=== PATIENT | female | born 1960 ===

== ENCOUNTER → 2017-07-11 | Outpatient (CLI) | payer BC | END | disposition home or self-care (01) | LOC: C.PAPS 15:28 | PROVIDERS: ATTEND Obstetrics & Gynecology | DX: Z01.419 Encounter for gynecological examination (general) (routine) without abnormal findings (principal) ==

== ENCOUNTER → 2017-07-11 | Outpatient (CLI) | payer BC ==
--- NOTE | 2017-07-27 14:36 | MAMMOGRAPHY REPORT ---
BILATERAL DIGITAL SCREENING MAMMOGRAM TOMOSYNTHESIS WITH CAD: 07/11/2017 CLINICAL HISTORY: Routine screening. Patient has no complaints. TECHNIQUE: Breast tomosynthesis in addition to standard 2D mammography was performed. Current study was also evaluated with a Computer Aided Detection (CAD) system. Bilateral CC and MLO 2-D and tomosy nthesis images were obtained. COMPARISON: Prior outside digital mammograms dated 2015, 2014, and 2013 from [place] [facility] [employer] [facility] were printed on hard copy films and sent to the breast center. However, the images were not sent on a CD and therefore could not be loaded into the PACS. BREAST COMPOSITION: The tissue of both breasts is heterogeneously dense, which may obscure small mas ses. FINDINGS: There is a partially circumscribed and partially obscured 10 mm mass within the right uppe r outer quadrant, a circumscribed 5 mm masses in the right medial breast on the cc view, and a partia lly circumscribed and partially obscured 5 mm mass within the left posterior breast along the posteri or nipple line on the right MLO view. When compared to the hardcopy prior outside mammograms, the fi ndings are likely not significantly changed, however, recommend comparison with the actual digital im ages for optimal comparison. Bilateral benign-appearing calcifications are likely also not significa ntly changed however better comparison is needed. Remainder of both breasts demonstrate no suspiciou s masses, calcifications, or areas of architectural distortion. IMPRESSION: ACR BI-RADS CATEGORY 0: INCOMPLETE EVALUATION: NEED ADDITIONAL IMAGING EVALUATION Right breast masses and bilateral breast calcifications. The findings are likely not significantly c hanged compared to the prior outside mammograms, however, the only available prior outside digital ma mmograms were printed on hard copy films and are suboptimal for comparison. Recommend obtaining the prior outside mammograms on a disc so that they can be loaded into PACS for comparison. Per the [facility], the disc has been sent and we are waiting for arrival. An addendum will be made once t he images are received and a comparison is made. Approximately 10% of breast cancers are not detected with mammography. A negative mammographic report should not delay biopsy if a clinically suggestive mass is present. Lorena Mann M.D. ah/:07/27/2017 12:43:37 Financial Services Assistant: Ronda ALVARENGA,R, M, [facility] letter sent: Need Priors 0 BI-RADS Code: ACR BI-RADS Category 0: Incomplete Evaluation: Need Additional Imaging Evaluation
== END | disposition home or self-care (01) ==
LOC: C.MAMM 09:14
PROVIDERS: ATTEND Family Medicine
DX: Z12.31 Encounter for screening mammogram for malignant neoplasm of breast (principal); N63.10 Unspecified lump in the right breast, unspecified quadrant; R92.1 Mammographic calcification found on diagnostic imaging of breast